=== PATIENT | female | born 1970 | race Caucasian/White ===

== ENCOUNTER 2017-05-14 05:09 | Day surgery (SDC) | payer OTHER ==
[~2017-05-14] VITALS: Ht 162.6 cm; Wt 125.6 kg
[~2017-05-14 05:09] MED LIST: ADIPEX-P37.5 MG PO; ASCORBIC ACID500 MG PO; COLACE100 MG PO; DYAZIDE 37.5/251 CAP PO; IBUPROFEN600 MG PO; MAGNESIUM GLUC550 MG PO; MINIVELLE1 EAC1; MINIVELLE1 EAC1 TRANSDERM; NAPROXEN250 MG PO; PERCOCET 10/3251 TA1 PO; SYNTHROID50 MCG PO; ULTRAM50 MG PO; VENTOLIN HFA18 GM INH; VIVELLE-DO1 PATCH.B1 TD; tumeric PO
[2017-05-14 05:53] VITALS: BP 121/57; Ht 162.6 cm; Wt 125.6 kg
[2017-05-14 06:44] LABS: BASOPHILS 0.3 % (0-2); HEMATOCRIT 43.5 % (36.0-48.0); HEMOGLOBIN 14.6 g/dL (12-16); IMMATURE GRANULOCYTES 0.1 % (0-5); LYMPHOCYTES 27.6 % (15-50); MCH 29.7 pg (26.0-34.0); MCHC 33.6 g/dL (31.0-37.0); MCV 88.6 fL (80.0-100.0); MEAN PLATELET VOLUME 12.2 fL (7.4-10.4); MONOCYTES 7.7 % (2-11); NEUTROPHILS 61.3 % (40-80); PLATELET COUNT 141 10x3/uL (130-400); RBC 4.91 10x6/uL (4.00-5.40); WBC 7.4 10x3/uL (4.8-10.8)
[2017-05-14 07:04] LABS: ANION GAP 12.5 mmol/L (8-16); CALCIUM 9.1 mg/dL (8.5-10.1); CARBON DIOXIDE 26.9 mmol/L (21.0-32.0); POTASSIUM - SERUM 3.4 mmol/L (3.5-5.1)
[2017-05-14] MEDS ORDERED: HYDROCODONE-APA1 TAB PO (08:54)
[2017-05-14] MEDS ORDERED: CYCLOBENZAPRINE10 MG PO (08:54)
--- NOTE | 2017-05-14 09:40 | NUR ---
0930 TO 2508 BY STRETCHER, MOVED SELF TO BED, A/A C/O NAUSEA NO EMESIS, COOL CLOTH TO FACE, BASIN PROVIDED, ALCOHOL SWABS TO BREATH.
--- NOTE | 2017-05-14 10:10 | NUR ---
1003 DR. CHENG PAGED RETURNED CALL, NAUSEA REPORTED ORDER RECEIVED
--- NOTE | 2017-05-14 12:21 | NUR ---
PAIN LEVEL AT 5 GIVEN A ULTRAN 50 MG PO
== END 2017-05-14 13:30 | disposition home or self-care (01) ==
LOC: D.OPS 05:09 → D.PAN 07:30 → D.OPS 12:00
PROVIDERS: Surgery
DX: D17.1 Benign lipomatous neoplasm of skin and subcutaneous tissue of trunk (principal); J45.909 Unspecified asthma, uncomplicated; E03.9 Hypothyroidism, unspecified; Z01.812 Encounter for preprocedural laboratory examination; E66.01 Morbid (severe) obesity due to excess calories; Z68.42 Body mass index [BMI] 45.0-49.9, adult

== ENCOUNTER → 2018-10-03 14:46 | Outpatient (CLI) | payer OTHER ==
[2017-05-14 05:53] VITALS: BMI 47.6
[~2018-10-03 14:46] MED LIST changes: +CYCLOBENZAPRINE10 MG PO; +HYDROCODONE-APA1 TAB PO
== END | disposition home or self-care (01) ==
LOC: D.MRI 10-01 14:30
DX: M54.5 Low back pain (principal)